=== PATIENT | male | born 1995 | race African-American/Black ===

== ENCOUNTER → 2017-06-27 | Outpatient (CLI) | payer OTHER ==
--- NOTE | 2017-06-27 11:12 | REP ---
CT IACS WITHOUT CONTRAST: HISTORY: Right conductive hearing loss. The internal auditory canals, cochlea, vestibules and semicircular canals are normal in appearance. The ossicles are normal in configuration and position. The scutum and tegmen are intact. The middle ear cavities and mastoid air cells are clear. Minimal mucosal thickening is present in the ethmoid, right maxillary and left sphenoid sinuses. The nasopharynx is normal in appearance. IMPRESSION: Normal CT IACS. Signed by Taras Park MD 06/27/2017 09:22 A
== END ==
LOC: M RAD 07:13
PROVIDERS: ATTEND Specialist
DX: H90.11 Conductive hearing loss, unilateral, right ear, with unrestricted hearing on the contralateral side (principal)

== ENCOUNTER → 2017-07-30 | Outpatient (CLI) | payer OTHER ==
[~2017-07-30] MED LIST: PROHANCE 279.3MG/ML 15ML VIAL (A9576) As Ordered ONE; PROHANCE 279.3MG/ML 5ML VIAL (A9576) As Ordered ONE
--- NOTE | 2017-07-31 08:47 | REP ---
MR BRAIN WITHOUT AND WITH CONTRAST: HISTORY: Right hearing loss. CONTRAST: ProHance 18 mL. There are no areas of abnormal signal intensity in the brain. There is no intraparenchymal hemorrhage, infarct, mass, or midline shift. There is no abnormal enhancement. The ventricular system is normal in appearance. There is no extracerebral collection. There is no cerebellopontine angle mass. The inner ear structures are normal in appearance. The mastoid air cells are clear. Mucosal thickening is present in the right maxillary and sphenoid sinuses. IMPRESSION: There is no intracranial lesion. Signed by Taras Park MD 07/31/2017 08:50 A
== END ==
LOC: M RAD 17:39
PROVIDERS: ATTEND Specialist
DX: H90.11 Conductive hearing loss, unilateral, right ear, with unrestricted hearing on the contralateral side (principal); H90.41 Sensorineural hearing loss, unilateral, right ear, with unrestricted hearing on the contralateral side
CPT/HCPCS: 70553; A9576

== ENCOUNTER 2017-12-26 13:00 | Emergency (ER) | payer OTHER ==
[2017-12-26] MEDS: LIDOCAINE 2% MDV 20 ML VIAL SC (13:57)
== END 2017-12-26 14:42 | disposition home or self-care (01) ==
LOC: M ED 13:00
DX: S61.213A Laceration without foreign body of left middle finger without damage to nail, initial encounter (principal); W26.8XXA Contact with other sharp object(s), not elsewhere classified, initial encounter; Y92.139 Unspecified place military base as the place of occurrence of the external cause; Y99.1 Military activity
CPT/HCPCS: 12002